=== PATIENT | female | born 1990 | race Hispanic/Latino ===

== ENCOUNTER 2017-06-10 06:57 | Inpatient (IN) | payer OTHER ==
[2017-06-10] MEDS ORDERED: Ondansetron HCl/PF 4 MG/2 ML Vial IVP PRN ×2 (07:29→18:31)
[2017-06-10] MEDS ORDERED: Promethazine HCl 25 MG/ML VIAL IM PRN (07:29)
[2017-06-10] MEDS ORDERED: Ibuprofen 800 MG TAB PO PRN (07:29)
[2017-06-10] MEDS ORDERED: Acetaminophen 500 MG TAB PO PRN (07:29)
[2017-06-10] MEDS ORDERED: Lidocaine 1% (PF) 30 ML VIAL SC PRN (07:29)
[2017-06-10] MEDS ORDERED: Acetaminophen/Codeine 30-300mg Tablet PO PRN ×3 (07:29→18:31)
[2017-06-10] MEDS: Lactated Ringer's 1,000 ML IV SCH ×2 (07:30→09:58)
[2017-06-10] MEDS ORDERED: LR 500 ML/Oxytocin 10 units 500 ML IV SCH ×2 (07:30)
--- NOTE | 2017-06-10 07:33 | PDOC.LDHP ---
Labor and Delivery H&P Chief complaint: loss of fluid HPI: Ptis a 26yo G1 @ 39 weeks with SROM @ 0500 this AM. Current gestational age (weeks): 39 Dating criteria: last menstrual period, first trimester ultrasound Grav: 1 Para: 0 Current complications: none Abnormal US findings: No Current medications: pre- vitamins Previous surgical history: none Social history: none - Physical Exam Vital signs reviewed and normal: yes General: resting Heart: RRR Lungs: CTAB Abdomen: gravid Extremeties: no edema FHT: category 1 - Vaginal Exam cm dilated: 3 Effacement: 90% - OB Labs Blood type: A RH: positive Antibody Screen: negative HIV: negative RPR: negative HEPSAg: negative 1 hour GCT: positive 3 hour GTT: negative GBS: negative Urine drug screen: not done Rubella: immune - Assessment L&D Assessment: term rupture in membranes - Plan Plan: admit to L&D, labor augmentation if indicated, informed consent obtained, anesthesia consult for pain management -: A/P: 26yo G1 @ 39 weeks with ROM, admit to L and D, pitocin if indicated for IOL or augmentation. FHT reassuring.
[2017-06-10 07:45] VITALS: BMI 28.0
[2017-06-10 08:01] LABS: Mean Corpuscular HGB CONC 34.1 g/dL (32.0-36.0); Mean Corpuscular Hemoglobin 30.7 pg (27.0-31.0); Mean Corpuscular Volume 90.1 fl (81.0-99.0); Mean Platelet Volume 9.2 fL (7.4-10.4); Platelet Count 122 thou/uL (130-400); RBC Distribution Width 12.1 % (11.5-14.5); Red Blood Cell (RBC) Count 4.23 mill/uL (4.20-5.40); White Blood Cell (WBC) Count 8.6 thou/uL (4.8-10.8)
[2017-06-10] MEDS ORDERED: Bupivacaine 0.5% 20 ML, Fentanyl 400 MCG in Sodium Chloride 0.9% 72 ML EPIDURAL SCH (08:30)
[2017-06-10] MEDS ORDERED: DISCONTINUE ALL PREVIOUS NARCOTICS FS SCH (08:30)
[2017-06-10 08:38] LABS: HBSAg Index 0.16 S/CO (0-0.99); Hep B Surf Ag Non-Reactive S/CO (NonReactive)
[2017-06-10] MEDS ORDERED: Eucerin (Mineral Oil/Petrolatum,White) 30 gm Jar TOP PRN (09:21)
[2017-06-10] MEDS ORDERED: Naloxone HCl 0.4 mg/ml Vial IVP PRN (09:21)
[2017-06-10] MEDS ORDERED: Acetaminophen 325 MG TAB PO PRN (09:21)
[2017-06-10] MEDS ORDERED: ePHEDrine/0.9% NaCl/PF SYRINGE 50 mg/10 ml SLOW IVP PRN (09:21)
[2017-06-10] MEDS ORDERED: Lactated Ringer's 500 ML IV PRN (09:21)
[2017-06-10] MEDS ORDERED: Communication Order-Pharmacy FS SCH (09:30)
[2017-06-10] MEDS ORDERED: Fentanyl 4mcg/Marcaine 0.1% Cassette 100 ML EPIDURAL SCH (09:30)
[2017-06-10] MEDS: LR / Pitocin 40 units/1000 ml 1,000 ML IV PRN ×2 (16:35→18:29)
--- NOTE | 2017-06-10 16:50 | PDOC.OPDEL ---
OB Operative/Delivery Note Delivery Dr/Surgeon: Vinny Pre-Delivery Diagnosis: active labor Procedure/Post Delivery Dx: spontaneous vaginal delivery Weeks gestation: 39 - Findings A Sex: male - 1 min: 8 - 5 min: 9 - Additional Findings/Plan Placenta delivered: spontaneous Repaired Obstetrical Laceration: periurethral (right) Estimated blood loss: 400ml Post delivery plan: routine recovery
[2017-06-10] MEDS ORDERED: Bisacodyl 10 MG SUPP PR PRN (18:31)
[2017-06-10] MEDS ORDERED: Adacel (T-DAP) 0.5 ML VIAL IM ONE (18:31)
[2017-06-10] MEDS ORDERED: Milk Of Magnesia 30 ML UDCUP PO PRN (18:31)
[2017-06-10] MEDS ORDERED: diphenhydrAMINE 25 MG CAP PO PRN (18:31)
[2017-06-10] MEDS ORDERED: Benzocaine/Menthol 20-0.5% 60 ML CAN TOP PRN (18:31)
[2017-06-10] MEDS ORDERED: Preparation H Ointment 28 GM TUBE PR PRN (18:31)
[2017-06-10] MEDS ORDERED: Lanolin Ointment 7 GM TUBE TOP PRN (18:31)
[2017-06-10] MEDS ORDERED: LR / Pitocin 40 units/1000 ml 1,000 ML IV SCH (18:31)
[2017-06-10] MEDS: Ibuprofen 800 MG TAB PO SCH (21:25)
[2017-06-10] MEDS: Docusate Calcium (SURFAK) 240 MG CAP PO SCH (21:25)
[2017-06-11] MEDS: Ferrous Sulfate 325 MG TAB PO SCH ×3 (03:23→17:01)
[2017-06-11 05:55] LABS: Hemoglobin 8.2 g/dL (12.0-16.0); Mean Corpuscular HGB CONC 33.6 g/dL (32.0-36.0); Mean Corpuscular Hemoglobin 29.9 pg (27.0-31.0); Mean Platelet Volume 8.4 fL (7.4-10.4); Platelet Count 87 thou/uL (130-400); RBC Distribution Width 11.9 % (11.5-14.5); Red Blood Cell (RBC) Count 2.73 mill/uL (4.20-5.40); White Blood Cell (WBC) Count 9.1 thou/uL (4.8-10.8)
[2017-06-11] MEDS: Ibuprofen 800 MG TAB PO SCH ×3 (06:02→21:40)
--- NOTE | 2017-06-11 07:06 | PDOC.PP ---
Post Progress Note Post Day #: 1 Subjective: Patient seen at bedside. She is doing well, no acute issues. No new complaints. PO intake tolerated: yes Flatus: yes Ambulation: yes Vital Signs (12 hours) Temp Pulse Resp BP 06/11/17 04:10 97.7 F 73 20 06/10/17 23:50 98.6 F 74 18 06/10/17 21:05 98.2 F 90 20 118/56 L 06/10/17 20:05 98.2 F 90 18 124/65 06/10/17 20:00 97.5 F L 83 18 102/63 Weight Weight 179 lb - Physical Examination General: NAD Cardiovascular: no m/r/g Respiratory: clear to auscultation bilaterally Abdominal: + bowel sounds, no distention, appropriately TTP Extremities: negative homans (B) Neurological: no gross focal deficits Psychiatric: normal affect Result Diagrams: 06/11/17 05:26 Additional Labs: Post Labs Blood Type A POSITIVE 06/10/17 07:30 Hep Bs Antigen Non-Reactive S/CO (NonReactive) 06/10/17 07:30 (1) Vaginal delivery Code(s): O80 - ENCOUNTER FOR FULL-TERM UNCOMPLICATED DELIVERY Status: Acute (2) state Code(s): Z39.2 - ENCOUNTER FOR ROUTINE FOLLOW-UP Status: Acute - Assessment/Plan Doing well day 1. We discussed continued obs today and likely DC home tomorrow am is still stable. No new concerns at this time.
[2017-06-11] MEDS: Docusate Calcium (SURFAK) 240 MG CAP PO SCH ×2 (09:43→21:40)
[2017-06-11] MEDS: Prenatal Vitamin 1 TAB PO SCH (09:44)
[2017-06-11] MEDS: Acetaminophen/Codeine 30-300mg Tablet PO PRN (14:44)
[2017-06-12] MEDS: Ibuprofen 800 MG TAB PO SCH (06:21)
--- NOTE | 2017-06-12 06:28 | PDOC.PP ---
Post Progress Note Post Day #: PPD#2 Subjective: No c/o. Ready for home. PO intake tolerated: yes Flatus: yes Ambulation: yes Vital Signs (12 hours) Temp Pulse Resp BP 06/11/17 20:15 98.4 F 81 20 135/74 Weight Weight 81.193 kg - Physical Examination General: NAD Abdominal: no distention Fundus firm & at: below umbilicus Extremities: negative homans (B) Psychiatric: A&Ox3, normal affect Result Diagrams: 06/11/17 05:26 Additional Labs: Post Labs Blood Type A POSITIVE 06/10/17 07:30 Hep Bs Antigen Non-Reactive S/CO (NonReactive) 06/10/17 07:30 - Assessment/Plan D/C home. Precautions reviewed. RTC 6 weeks.
[2017-06-12 07:45] VITALS: BP 131/83; TEMP 98.2
[2017-06-12] MEDS: Acetaminophen/Codeine 30-300mg Tablet PO PRN (09:00)
[2017-06-12] MEDS: Ferrous Sulfate 325 MG TAB PO SCH (09:00)
[2017-06-12] MEDS: Prenatal Vitamin 1 TAB PO SCH (09:00)
[2017-06-12] MEDS: Docusate Calcium (SURFAK) 240 MG CAP PO SCH (09:00)
== END 2017-06-12 13:52 | disposition home or self-care (01) | DRG 775 ==
LOC: L&D/OP 06:57 → L&D 07:25 → 3SW 19:28 → 3SE 06-11 13:32
PROVIDERS: ADMIT Obstetrics & Gynecology; ATTEND Obstetrics & Gynecology
PROC: 10E0XZZ Delivery of Products of Conception, External Approach (ICD-10-PCS; principal; 2017-06-10)
PROC: 0UQMXZZ Repair Vulva, External Approach (ICD-10-PCS; 2017-06-10)
DX: O42.02 Full-term premature rupture of membranes, onset of labor within 24 hours of rupture (principal); O71.82 Other specified trauma to perineum and vulva; Z3A.39 39 weeks gestation of pregnancy; Z37.0 Single live birth
CPT/HCPCS: 36415; 51702; 85027; 86850; 86900; 86901; 87340; 90715; 99285; J2001; J3010; J3490; J7050; J7120